=== PATIENT | female | born 1985 | race Caucasian/White ===

== ENCOUNTER 2017-02-06 12:46 | Emergency (ER) | payer MEDICAID ==
[2017-02-06 13:39] VITALS: BP 109/70
--- NOTE | 2017-02-06 13:48 | Emergency Department Report ---
Chief Complaint: Sore Throat Stated Complaint: THROAT AND BODY PAIN Time Seen by Provider: 02/06/17 13:20 - HPI History of Present Illness: sore throat fever aches children so wants to make sure not ill vss nad no sign pmh - ROS Review of Systems: as noted - Exam Vital Signs: Vital Signs 02/06/17 13:36 Temperature 98.2 F Pulse Rate 54 L Respiratory 18 Rate Blood Pressure 109/70 O2 Sat by Pulse 100 Oximetry MSE screening note: Focused history and physical exam performed. Due to findings the following was ordered: ED Disposition for MSE Condition: Stable
--- NOTE | 2017-02-06 15:33 | Emergency Department Report ---
HPI - General Chief Complaint: Sore Throat Time Seen by Provider: 02/06/17 15:17 - HPI HPI: Patient here reported body ache and sore throats this started 3 days ago. She reports that she is a candidate in his throat is sore at 6 out of 10. Denies any fever or chills. Denies any nausea or vomiting. Denies any abdominal pain. Denies any drooling. She is here to be checked out for strep throat. As any coughing or runny nose. Denies neck pain or stiffness. ED Past Medical Hx - Past Medical History Previous Medical History?: Yes - Surgical History Past Surgical History?: Yes Additional Surgical History: x 3 - Family History Family history: no significant - Social History Smoking Status: Current Every Day Smoker Substance Use Type: Alcohol, Non Opiate Pain - Medications Home Medications: Home Medications Medication Instructions Recorded Confirmed Last Taken Type Ibuprofen [Motrin] 600 mg PO Q8H PRN #15 tablet 02/06/17 Unknown Rx Penicillin Vk [Veetids TAB] 500 mg PO Q8H #60 tablet 02/06/17 Unknown Rx ED Review of Systems ROS: Stated complaint: THROAT AND BODY PAIN Other details as noted in HPI Comment: All other systems reviewed and negative Constitutional: denies: chills, fever Eyes: denies: eye pain ENT: throat pain. denies: ear pain, dental pain, hearing loss, congestion Respiratory: no symptoms reported Cardiovascular: denies: chest pain, palpitations, edema, syncope Gastrointestinal: denies: abdominal pain, nausea, vomiting Musculoskeletal: myalgia. denies: back pain, joint swelling, arthralgia Skin: denies: rash Neurological: denies: headache, numbness, paresthesias, confusion, abnormal gait , vertigo Physical Exam - Physical Exam Vital Signs: Vital Signs 02/06/17 13:36 Temperature 98.2 F Pulse Rate 54 L Respiratory 18 Rate Blood Pressure 109/70 O2 Sat by Pulse 100 Oximetry General: This is a 31-year-old female well-nourished well-developed in no acute distress. Physical Exam: Head: [Normocephalic atraumatic Mouth: Moist, positive pharyngeal erythema without exudate. Uvula is midline and oral airway is patent. No gingival enlargement or dental tenderness. No facial swelling. No peritonsillar abscesses. Neck: Supple, no C-spine tenderness, no tracheal deviation. Nontender to palpate. no adenopathy Ears: Bilateral TMs pearly mcdowell.bilateral EAC without any redness swelling or drainage Eyes: Bilateral pupils equal and reactive to light, bilateral EOM intact. Bilateral sclera and conjunctiva without injection. Normal accommodation Nose: Mucosa moist, normal nasal turbinates .maxillary and frontal sinus non- tender to palpate. Lungs: clear to auscultate bilaterally no rhonchi wheezes or rales. Normal work of breathing extremity; No CCE. +2 pulses. No neurovascular compromise Cardiovascular: S1-S2, regular rate rhythm. No murmurs. Skin: clean Dry and intact no rash no lesions Psych: Normal mood and behavior ED Course Vital Signs 02/06/17 13:36 Temperature 98.2 F Pulse Rate 54 L Respiratory 18 Rate Blood Pressure 109/70 O2 Sat by Pulse 100 Oximetry - Reevaluation(s) Reevaluation #1: 02/06/17 16:36 She received Toradol 60 mg IM and emergency room for pain ED Medical Decision Making - Lab Data Strep test positive - Medical Decision Making Course:Pt with diagnosis of strep pharyngitis and myalgia. I Discussed with patient her results of the strep test, treatment plan. She was given Toradol 60 mg IM and emergency room which relieved her pain. PT discharged home with prescription for Motrin and penicillin VK. Critical care attestation.: If time is entered above; I have spent that time in minutes in the direct care of this critically ill patient, excluding procedure time. ED Disposition Clinical Impression: Strep pharyngitis, Myalgia Disposition: DISCHARGED TO HOME OR SELFCARE Is pt being admited?: No Does the pt Need Aspirin: No Condition: Stable Instructions: Strep Throat (ED), Musculoskeletal Pain (ED) Additional Instructions: Gargle with warm saltwater Take antibiotic as prescribed Follow up with Primary care physician and if you do not have one week and follow-up with outside Medical Center Prescriptions: Ibuprofen [Motrin] 600 mg PO Q8H PRN #15 tablet PRN Reason: Pain Penicillin Vk [Veetids TAB] 500 mg PO Q8H #60 tablet Referrals: PRIMARY CARE, [Primary Care Provider] - 2-3 Days [facility] [Outside] - 2-3 Days Forms: Work/School Release Form(ED), Accompanied Note
[2017-02-06] MEDS: TORADOL IM ONE (16:16)
== END 2017-02-06 16:46 | disposition home or self-care (01) ==
LOC: ED 12:46
DX: J02.0 Streptococcal pharyngitis (principal); M79.1 Myalgia; F17.200 Nicotine dependence, unspecified, uncomplicated
CPT/HCPCS: 87430; 96372; 99282; J1885

== ENCOUNTER 2017-05-14 12:21 | Emergency (ER) | payer MEDICAID ==
[2017-05-14 12:31] VITALS: BP 110/75
== END 2017-05-14 13:43 | disposition left against medical advice (07) ==
LOC: ED 12:21
DX: R10.9 Unspecified abdominal pain (principal); Z53.21 Procedure and treatment not carried out due to patient leaving prior to being seen by health care provider

== ENCOUNTER 2017-09-27 08:26 | Emergency (ER) | payer MEDICAID ==
[2017-09-27 08:34] VITALS: BP 115/77
--- NOTE | 2017-09-27 10:09 | Emergency Department Report ---
Chief Complaint: Medical Clearance Stated Complaint: RASH Time Seen by Provider: 09/27/17 09:00 - HPI History of Present Illness: Patient is a 32-year-old female who presents to ED stating she was seen by her primary care physician yesterday for shingles and was given some Acyclovir 800 mg to take 5 times a day as well as ibuprofen 800 mg q8h. Patient states that ibuprofen is not working for her pain. Patient states she started her medication this morning. Patient nausea mentions that she has a history of anxiety and depression and has been off her meds for a couple of months due to the fact that she recently reads moved here from [place] and has not been able to find a psychiatrist. She denies any suicidal ideation or homicidal ideation. Patient denies fevers/chills/nausea/vomiting/abdominal pain/chest pain/ shortness of breath or chest pain - ROS Review of Systems: See HPI - Exam Vital Signs: Vital Signs 09/27/17 08:29 Temperature 98.5 F Pulse Rate 78 Respiratory 16 Rate Blood Pressure 115/77 O2 Sat by Pulse 99 Oximetry Physical Exam: GENERAL: Alert and oriented x3, no apparent distress, Normal Gait, atraumatic. HEAD: Head is normocephalic and a-traumatic. EYES: Extra ocular muscles are intact. Pupils are equal, round, and reactive to light and accommodation. LUNGS: Symetrical with respiration, No wheezing, no rales or crackles, CTAB. HEART: S1, S2 present, regular rate and rhythm without murmur, no rubs, no gallops. Non tender to palpation EXTREMITIES/MUSCULOSKELETAL: No cyanosis, clubbing, rash, lesions or edema. Full ROM bilaterally. UE/LE Pulses 2+ bilaterally. NEUROLOGIC: The patient is cooperative with no focal neurologic deficits. Cranial nerves II through XII are grossly intact. Normal speech. Normal sensation in bilateral upper and lower extremities, No loss of sensation, PSYCHIATRIC: Mood is congruent with affect, denies suicidal or homicidal ideations. SKIN: Warm and dry, No lesions, No ulceration or induration present. MSE screening note: Focused history and physical exam performed. Due to findings the following was ordered: ED Medical Decision Making - Medical Decision Making 32-year-old female presenting with shingles ED course: Patient received 1 tablet on ED I discussed the patient to take the medication unless prescribed by her primary care doctor. I discussed with the patient is some tenderness resolve after taking medications. I discussed the patient states time for the symptoms resolved. I discussed admission to voice radiating the rash. I discussed admission or follow-up with her primary care physician. As I discussed admission out to Ultram to her prescriptions to help with the pain into continuing to take the Motrin and acyclovir as instructed by her primary care physician. Vital signs are normal patient is in no acute distress ED Disposition for MSE Clinical Impression: Shingles outbreak Qualifiers: Herpes zoster complications: without complications Qualified Code(s): B02.9 - Zoster without complications Disposition: TO HOME OR SELFCARE Is pt being admited?: No Does the pt Need Aspirin: No Condition: Stable Instructions: Herpes Zoster (ED) Additional Instructions: Make sure to follow up with the primary care physician as discussed. Take all your medications as you've been prescribed via primary care doctor . If you have any worsening symptoms or develop new symptoms please return to ED immediately. Prescriptions: traMADol [Ultram] 50 mg PO Q6HR PRN #20 tablet PRN Reason: Pain Referrals: JERRY SHRESTHA MD [Primary Care Provider] - 3-5 Days Forms: Accompanied Note, Work/School Release Form(ED) Time of Disposition: 10:41
[2017-09-27] MEDS ORDERED: NORCO 5/325 PO ONE (10:19)
== END 2017-09-27 11:01 | disposition home or self-care (01) ==
LOC: ED 08:26
DX: B02.9 Zoster without complications (principal)
CPT/HCPCS: 99282

== ENCOUNTER 2018-02-15 08:11 | Emergency (ER) | payer OTHER ==
[2018-02-15 08:39] LABS: HCG Qualitative,Urine Negative (Negative)
[2018-02-15 08:47] LABS: Bilirubin,Urine NEG (Negative); Blood,Urine LG (Negative); Color,Urine Yellow (Yellow); Hyaline Casts,Urine 1 /LPF; Mucus,Urine FEW /HPF; Protein,Urine <15 mg/dL mg/dL (Negative); Urobilinogen,Urine < 2.0 mg/dL (<2.0)
[2018-02-15] MEDS ORDERED: TORADOL IV ONE (09:42)
[2018-02-15] MEDS ORDERED: DILAUDID IV ONE (09:42)
[2018-02-15] MEDS ORDERED: ZOFRAN IV ONE (09:42)
--- NOTE | 2018-02-15 10:21 | Emergency Department Report ---
ED General Adult HPI - General Chief complaint: Abdominal Pain Stated complaint: LEFT SIDE BACK PAIN Time Seen by Provider: 02/15/18 09:39 Source: patient Mode of arrival: Ambulatory Limitations: No Limitations - History of Present Illness Initial comments: Patient complains of left flank pain which she states is "going down". She thinks that she is passing a kidney stone. She states that the pain is improving since when it began last night. She states the pain is reminiscent of prior kidney stones. She is status post placement and removal of several ureteral stents. She states her last bout of renal colic was 3 years ago in [place]. She does not have a local urologist. She denies fever or chills and dysuria. She is not nauseated or vomiting. -: hour(s) Location: left (flank) Radiation: non-radiation (left lower quadrant) Severity scale (0 -10): 9 Quality: aching Consistency: intermittent Improves with: none Worsens with: none Associated Symptoms: denies other symptoms Treatments Prior to Arrival: none - Related Data Previous Rx's Medication Instructions Recorded Last Taken Type Ibuprofen [Motrin] 600 mg PO Q8H PRN #15 tablet 02/06/17 Unknown Rx Penicillin Vk [Veetids TAB] 500 mg PO Q8H #60 tablet 02/06/17 Unknown Rx traMADol [Ultram] 50 mg PO Q6HR PRN #20 tablet 09/27/17 Unknown Rx Allergies Allergy/AdvReac Type Severity Reaction Status Date / Time No Known Allergies Allergy Verified 02/15/18 08:13 ED Review of Systems ROS: Stated complaint: LEFT SIDE BACK PAIN Other details as noted in HPI Constitutional: denies: chills, fever Eyes: denies: eye pain, eye discharge, vision change ENT: denies: ear pain, throat pain Respiratory: denies: cough, shortness of breath, wheezing Cardiovascular: denies: chest pain, palpitations Endocrine: no symptoms reported Gastrointestinal: denies: abdominal pain, nausea, diarrhea Genitourinary: denies: urgency, dysuria, discharge Musculoskeletal: back pain. denies: joint swelling, arthralgia Skin: denies: rash, lesions Neurological: denies: headache, weakness, paresthesias Psychiatric: denies: anxiety, depression Hematological/Lymphatic: denies: easy bleeding, easy bruising ED Past Medical Hx - Past Medical History Hx Kidney Stones: Yes Additional medical history: UTI, - Surgical History Additional Surgical History: x 3, Lithotripsies - Social History Smoking Status: Current Every Day Smoker Substance Use Type: Marijuana - Medications Home Medications: Home Medications Medication Instructions Recorded Confirmed Last Taken Type Ibuprofen [Motrin] 600 mg PO Q8H PRN #15 tablet 02/06/17 Unknown Rx Penicillin Vk [Veetids TAB] 500 mg PO Q8H #60 tablet 02/06/17 Unknown Rx traMADol [Ultram] 50 mg PO Q6HR PRN #20 tablet 09/27/17 Unknown Rx ED Physical Exam - General Limitations: No Limitations General appearance: alert, in no apparent distress - Head Head exam: Present: atraumatic, normocephalic - Eye Eye exam: Present: normal appearance, PERRL, EOMI. Absent: scleral icterus - ENT ENT exam: Present: mucous membranes moist - Neck Neck exam: Present: normal inspection - Respiratory Respiratory exam: Present: normal lung sounds bilaterally. Absent: respiratory distress - Cardiovascular Cardiovascular Exam: Present: regular rate, normal rhythm. Absent: systolic murmur, diastolic murmur, rubs, gallop - GI/Abdominal GI/Abdominal exam: Present: soft, normal bowel sounds. Absent: distended, tenderness, guarding, rebound, rigid - Extremities Exam Extremities exam: Present: normal inspection - Back Exam Back exam: Present: normal inspection. Absent: CVA tenderness (R), CVA tenderness (L) - Neurological Exam Neurological exam: Present: alert, oriented X3, CN II-XII intact. Absent: motor sensory deficit - Psychiatric Psychiatric exam: Present: normal affect, normal mood - Skin Skin exam: Present: warm, dry, intact, normal color. Absent: rash ED Course Vital Signs 02/15/18 02/15/18 02/15/18 08:13 08:49 08:51 Temperature 97.8 F 98.6 F Pulse Rate 64 65 Respiratory 18 16 16 Rate Blood Pressure 120/69 Blood Pressure 120/78 [Right] O2 Sat by Pulse 100 100 100 Oximetry 02/15/18 10:10 Temperature Pulse Rate Respiratory 16 Rate Blood Pressure Blood Pressure [Right] O2 Sat by Pulse Oximetry - Reevaluation(s) Reevaluation #1: Pain resolved. 02/15/18 11:43 ED Medical Decision Making - Radiology Data Radiology results: report reviewed (minimal hydronephrosis on the right with nephrolithiasis probably passed a small stone) Critical care attestation.: If time is entered above; I have spent that time in minutes in the direct care of this critically ill patient, excluding procedure time. ED Disposition Clinical Impression: Renal colic, Renal lithiasis Disposition: TO HOME OR SELFCARE Is pt being admited?: No Does the pt Need Aspirin: No Condition: Stable Instructions: Abdominal Pain (ED), Kidney Stones (ED) Additional Instructions: Follow-up with the urologist. Return any acute change or problem. Referrals: PRIMARY CAREMD [Primary Care Provider] - 3-5 Days [facility] [Provider Group] - 3-5 Days Time of Disposition: 11:44
--- NOTE | 2018-02-15 11:14 | Cat Scan Report ---
CT ABDOMEN PELVIS WITHOUT CONTRAST: HISTORY: Left renal colic. COMPARISON: none. TECHNIQUE: Helical CT in 1.25mm intervals without IV contrast. Sagittal and coronal reconstructions. FINDINGS: Lung bases: Normal. Liver: Normal. Biliary system: Normal. Pancreas: Normal. Spleen: Normal. Kidneys/ureters/bladder: Both kidneys are normal in position. There are 3 calyceal stones in the left kidney measuring up to 3 mm. Solitary punctate calcification is identified in the inferior right kidney. Right renal cyst measures 2.5 cm. There is mild left hydronephrosis. The left ureter is mildly dilated although no discrete ureteral stone is identified. The right collecting system and bladder are unremarkable. Adrenal glands: Normal. Aorta: Normal. Intestines: Unremarkable given no oral contrast was administered. Appendix: Normal. Pelvic viscera: Normal. Ascites: None. Adenopathy: None. Musculoskeletal: Normal. IMPRESSION: Bilateral nephrolithiasis as described. Mild left hydronephrosis is identified although no left ureteral stone is identified on noncontrast CT. This may represent a recently passed left ureteral stone. Please correlate with the patient's clinical presentation.
[2018-02-15 11:55] VITALS: BP 120/73
== END 2018-02-15 11:55 | disposition home or self-care (01) ==
LOC: ED 08:11
DX: N20.0 Calculus of kidney (principal); F17.200 Nicotine dependence, unspecified, uncomplicated
CPT/HCPCS: 74176; 81001; 81025; 96374; 96375; 99284; J1170; J1885; J2405

== ENCOUNTER 2018-03-30 00:44 | Emergency (ER) | payer OTHER | END 2018-03-30 03:00 | disposition left against medical advice (07) | LOC: ED 00:44 | DX: R10.9 Unspecified abdominal pain (principal); Z53.21 Procedure and treatment not carried out due to patient leaving prior to being seen by health care provider ==

== ENCOUNTER 2018-04-14 12:46 | Emergency (ER) | payer OTHER ==
--- NOTE | 2018-04-14 13:18 | Emergency Department Report ---
ED Psych HPI - General Chief Complaint: Psych Stated Complaint: SEVERE DEPRESSION/BACK PAIN Time Seen by Provider: 04/14/18 13:01 Source: patient Mode of arrival: Ambulatory - History of Present Illness Initial Comments: This is a 32-year-old female presents with anxiety and depression for 2 -3 weeks. Patient reports missing 2 appointments with primary care provider for follow-up on depression last week. She called the after hours hotline and they told her to follow-up in the emergency room. Patient reports having loss of appetite and continues to cry for no reason. She denies suicidal ideation or homicidal ideation. Patient states she believes what triggered her depression is when her children's left to visit her father for the summer in [place]. States she does have a history of depression and has not taken many in 4 years since a liter [place]. She is currently not on any medication at this time. She is also complaining of mid back pain. She does have a history of kidney stones and chronic low back pain. She is concerned possibly not eating or drinking and triggered it. Denies frequency, urgency, dysuria, fever, chest pain,and nausea or vomiting. MD Complaint: feels depressed -: week(s) (2-3 weeks) Associated Psychiatric Symptoms: depression History of same: Yes Quality: constant Improves With: none Worsens With: none Context: not taking psychiatric, significant life stressor Associated Symptoms: denies other symptoms Treatments Prior to Arrival: none - Related Data Previous Rx's Medication Instructions Recorded Last Taken Type Ibuprofen [Motrin] 600 mg PO Q8H PRN #15 tablet 02/06/17 Unknown Rx Penicillin Vk [Veetids TAB] 500 mg PO Q8H #60 tablet 02/06/17 Unknown Rx traMADol [Ultram] 50 mg PO Q6HR PRN #20 tablet 09/27/17 Unknown Rx Naproxen [Naprosyn] 500 mg PO BID PRN #15 tablet 04/14/18 Unknown Rx Allergies Allergy/AdvReac Type Severity Reaction Status Date / Time No Known Allergies Allergy Verified 02/15/18 08:13 ED Review of Systems ROS: Stated complaint: SEVERE DEPRESSION/BACK PAIN Other details as noted in HPI Constitutional: denies: chills, fever Respiratory: denies: cough, shortness of breath, wheezing Cardiovascular: denies: chest pain, palpitations Gastrointestinal: denies: abdominal pain, nausea, vomiting, diarrhea Genitourinary: denies: urgency, dysuria, frequency, discharge Musculoskeletal: back pain. denies: joint swelling, arthralgia, myalgia Neurological: denies: headache, weakness, numbness, paresthesias Psychiatric: anxiety, depression. denies: auditory hallucinations, visual hallucinations, homicidal thoughts, suicidal thoughts ED Past Medical Hx - Past Medical History Hx Kidney Stones: Yes Hx Psychiatric Treatment: Yes (depression,anxiety) Additional medical history: UTI,chronic back pain - Surgical History Additional Surgical History: x 3, Lithotripsies,tubiligation - Social History Smoking Status: Current Some Day Smoker Substance Use Type: None - Medications Home Medications: Home Medications Medication Instructions Recorded Confirmed Last Taken Type Ibuprofen [Motrin] 600 mg PO Q8H PRN #15 tablet 02/06/17 Unknown Rx Penicillin Vk [Veetids TAB] 500 mg PO Q8H #60 tablet 02/06/17 Unknown Rx traMADol [Ultram] 50 mg PO Q6HR PRN #20 tablet 09/27/17 Unknown Rx Naproxen [Naprosyn] 500 mg PO BID PRN #15 tablet 04/14/18 Unknown Rx ED Physical Exam - General Limitations: No Limitations General appearance: alert, in no apparent distress - Respiratory Respiratory exam: Present: normal lung sounds bilaterally. Absent: respiratory distress - Cardiovascular Cardiovascular Exam: Present: regular rate, normal rhythm. Absent: systolic murmur, diastolic murmur, rubs, gallop - GI/Abdominal GI/Abdominal exam: Present: soft, normal bowel sounds - Back Exam Back exam: Present: full ROM, CVA tenderness (L), paraspinal tenderness. Absent : CVA tenderness (R), muscle spasm, rash noted - Neurological Exam Neurological exam: Present: alert, oriented X3 - Psychiatric Psychiatric exam: Present: depressed, flat affect - Skin Skin exam: Present: warm, dry, intact, normal color. Absent: rash ED Course Vital Signs 04/14/18 04/14/18 12:51 15:07 Temperature 98.6 F 98.9 F Pulse Rate 85 66 Respiratory 18 18 Rate Blood Pressure 119/83 Blood Pressure 103/50 [Left] O2 Sat by Pulse 98 100 Oximetry ED Medical Decision Making - Lab Data Result diagrams: 04/14/18 13:17 04/14/18 13:17 - Medical Decision Making This is a 32-year-old female presents with anxiety and depression for 2 -3 weeks. Patient was examined by me. Vitals are normal. Obtained CBC, BMP, magnesium, toxicology, UA, hCG qualitative, and thyroid panel. Toxicology positive for benzodiazepines and marijuana, subclinical hyperthyroidism, all of the labs are remarkable. Patient admits to taking alprazolam old prescription. Given ibuprofen 800 mg by mouth once while in the ER for back pain. Consulted with Dr. Olvera and consults with mental health evaluation. Patient will be referred to PHP for outpatient mental health management per her [facility]. Start naproxen for chronic back pain. Plan discussed with patient to discharge home and treat outpatient. She agrees with ER plan. Patient discharged home in stable condition. Follow up with PHP at [facility] in the morning at 0830. Follow-up with primary care provider in 2-3 days. Critical care attestation.: If time is entered above; I have spent that time in minutes in the direct care of this critically ill patient, excluding procedure time. ED Disposition Clinical Impression: Depression Qualifiers: Depression Type: dysthymia Qualified Code(s): F34.1 - Dysthymic disorder Chronic low back pain Qualifiers: Back pain laterality: midline Sciatica presence: without sciatica Qualified Code(s): M54.5 - Low back pain; G89.29 - Other chronic pain Disposition: DC- TO HOME OR SELFCARE Is pt being admited?: No Does the pt Need Aspirin: No Condition: Stable Instructions: Depression (ED), Chronic Back Pain (ED) Additional Instructions: Follow up with PHP at [facility] at 08:30 AM in the morning for management of depression. Her primary care provider in 2-3 days. Take naproxen twice a day as needed for pain. Prescriptions: Naproxen [Naprosyn] 500 mg PO BID PRN #15 tablet PRN Reason: Pain, Moderate (4-6) Referrals: [facility] [Outside] - 3-5 Days [facility] [Outside] - 3-5 Days [facility] [Other] - 3-5 Days Time of Disposition: 15:57 Print Language: GERMAN
[2018-04-14 13:34] LABS: Basophils % (Auto) 0.4 % (0.0-1.8); Eosinophils # (Auto) 0.1 K/mm3 (0.0-0.4); Eosinophils % (Auto) 0.6 % (0.0-4.3); Hematocrit 41.5 % (30.3-42.9); Hemoglobin 13.5 gm/dl (10.1-14.3); Lymphocytes # (Auto) 2.2 K/mm3 (1.2-5.4); Lymphocytes % (Auto) 23.9 % (13.4-35.0); Mean Corpuscular HGB Conc 33 % (30-34); Mean Corpuscular Hemoglobin 29 pg (28-32); Mean Corpuscular Volume 88 fl (79-97); Monocytes # (Auto) 0.6 K/mm3 (0.0-0.8); Monocytes % (Auto) 6.6 % (0.0-7.3); Platelet Count 407 K/mm3 (140-440); Red Blood Count 4.71 M/mm3 (3.65-5.03); Red Cell Distribution Width 13.9 % (13.2-15.2)
[2018-04-14 13:34] LABS: Bacteria,Urine 1+ /HPF (Negative); Bilirubin,Urine NEG (Negative); Blood,Urine NEG (Negative); Color,Urine Yellow (Yellow); Mucus,Urine 3+ /HPF; Protein,Urine <15 mg/dL mg/dL (Negative); Urobilinogen,Urine < 2.0 mg/dL (<2.0)
[2018-04-14 13:40] LABS: Amphetamine Screen,Urine PRESUMPTIVE NEGATIVE; Cocaine Screen,Urine PRESUMPTIVE NEGATIVE; Methadone Screen,Urine PRESUMPTIVE NEGATIVE; Opiate Screen,Urine PRESUMPTIVE NEGATIVE
[2018-04-14 13:56] LABS: BUN/Creatinine Ratio 18; Blood Urea Nitrogen 9 mg/dL (7-17)
[2018-04-14 13:57] LABS: Hemolysis Index 5
[2018-04-14 13:58] LABS: Benzodiazepines Screen,Urine PRESUMPTIVE POSITIVE; Cannabinoid Screen,Urine PRESUMPTIVE POSITIVE
[2018-04-14 14:05] LABS: Free T4 (Free Thyroxine) 1.35 ng/dL (0.76-1.46)
[2018-04-14 15:07] VITALS: BP 103/50
[2018-04-14] MEDS ORDERED: MOTRIN PO ONE (16:03)
== END 2018-04-14 16:21 | disposition home or self-care (01) ==
LOC: ED 12:46
DX: F32.9 Major depressive disorder, single episode, unspecified (principal); F34.1 Dysthymic disorder; M54.5 Low back pain; G89.29 Other chronic pain; F17.200 Nicotine dependence, unspecified, uncomplicated; Z87.442 Personal history of urinary calculi; Z98.51 Tubal ligation status
CPT/HCPCS: 36415; 80048; 80307; 81001; 83735; 84439; 84443; 84703; 85025; 99283

== ENCOUNTER 2019-06-30 14:59 | Emergency (ER) | payer SELFPAY ==
--- NOTE | 2019-06-30 15:43 | Event Note ---
ED Screening Note ED Screening Note: hx of nephrolithiasis pt has left flank pain that began this morning states she believes she passed one small kidney stone + nausea no vomiting +dysuria LNMP: 06/26/19 This initial assessment/diagnostic orders/clinical plan/treatment(s) is/are subject to change based on patients health status, clinical progression and re- assessment by fellow clinical providers in the ED. Further treatment and workup at subsequent clinical providers discretion. Patient/guardian urged not to elope from the ED as their condition may be serious if not clinically assessed and managed. Initial orders include: labs, UA, ct abd pelvis without contrast
[2019-06-30 16:12] LABS: Bilirubin,Urine NEG (Negative); Blood,Urine SM (Negative); Color,Urine Yellow (Yellow); Mucus,Urine 1+ /HPF; Protein,Urine <15 mg/dL mg/dL (Negative); Urobilinogen,Urine < 2.0 mg/dL (<2.0); WBC,Urine < 1.0 /HPF (0.0-6.0)
[2019-06-30 16:18] LABS: Basophils # (Auto) 0.1 K/mm3 (0.0-0.1); Basophils % (Auto) 0.8 % (0.0-1.8); Eosinophils # (Auto) 0.1 K/mm3 (0.0-0.4); Eosinophils % (Auto) 0.4 % (0.0-4.3); Hematocrit 43.8 % (30.3-42.9); Hemoglobin 14.2 gm/dl (10.1-14.3); Lymphocytes # (Auto) 2.4 K/mm3 (1.2-5.4); Lymphocytes % (Auto) 20.3 % (13.4-35.0); Mean Corpuscular HGB Conc 33 % (30-34); Mean Corpuscular Volume 90 fl (79-97); Monocytes # (Auto) 0.6 K/mm3 (0.0-0.8); Monocytes % (Auto) 5.3 % (0.0-7.3); Platelet Count 451 K/mm3 (140-440); Red Blood Count 4.86 M/mm3 (3.65-5.03)
[2019-06-30 16:37] LABS: Alanine Aminotransferase 12 units/L (7-56); Albumin 4.1 g/dL (3.9-5); BUN/Creatinine Ratio 22; Blood Urea Nitrogen 11 mg/dL (7-17); Calcium 9.1 mg/dL (8.4-10.2); Hemolysis Index 25
--- NOTE | 2019-06-30 16:59 | Cat Scan Report ---
CT ABDOMEN AND PELVIS WITHOUT CONTRAST INDICATION: left flank pain, hx of nephrolithiasis. COMPARISON: CT abdomen and pelvis without contrast from 02/15/2018. TECHNIQUE: Axial, coronal and sagittal CT imaging of the abdomen and pelvis was performed without co ntrast. Lack of intravenous contrast limits evaluation of the vascular and solid organs. All CT sca ns at this location are performed using CT dose reduction for ALARA by means of automated exposure co ntrol. FINDINGS: LOWER CHEST: No significant abnormality. LIVER: Similarly enlarged. No additional significant abnormality. BILIARY: No significant abnormality. PANCREAS: No significant abnormality. SPLEEN: No significant abnormality. ADRENALS: No significant abnormality. KIDNEYS AND URETERS: Bilateral renal stones are similar to the prior exam. The largest is located heidy ng the left lower renal pole measuring 5 mm. No associated obstruction is identified. No ureteral sto hamida are seen. A right lower renal pole cyst is unchanged. GI TRACT: No significant abnormality of the stomach, small bowel or colon. Unremarkable appendix. PERITONEUM: No free fluid. No free air. No fluid collection. LYMPH NODES: No significant adenopathy. VASCULATURE: No significant abnormality. URINARY BLADDER: No significant abnormality. REPRODUCTIVE ORGANS: No significant abnormality. ADDITIONAL FINDINGS: None. SKELETAL SYSTEM: No significant abnormality. IMPRESSION: 1. Nonobstructive bilateral renal stones as above. 2. Stable right renal cyst. Signer Name: Stone Barber MD Signed: 06/30/2019 4:55 PM Workstation Name: [id number]
[2019-06-30] MEDS ORDERED: NACL 0.9% 1000 ML 1,000 ML IV ONE (17:40)
[2019-06-30] MEDS ORDERED: ZOFRAN IV ONE (17:40)
[2019-06-30] MEDS ORDERED: TORADOL IV ONE (17:40)
[2019-06-30] MEDS ORDERED: MORPHINE ONE (19:01)
[2019-06-30] MEDS ORDERED: MORPHINE IV ONE (19:03)
--- NOTE | 2019-06-30 19:28 | Emergency Department Report ---
ED Abdominal Pain HPI - General Chief Complaint: Abdominal Pain Stated Complaint: KIDNEY STONES PAIN/PANIC ATTACK Time Seen by Provider: 06/30/19 15:41 Source: patient Mode of arrival: Ambulatory Limitations: No Limitations - History of Present Illness MD Complaint: flank pain -: week(s) Location: L flank, R flank Radiation: none Migration to: no migration Severity scale (0 -10): 9 Quality: cramping, stabbing, aching Consistency: constant Improves With: nothing Associated Symptoms: nausea, vomiting. denies: diarrhea, fever, constipation, hematuria - Related Data Previous Rx's Medication Instructions Recorded Last Taken Type Ibuprofen [Motrin] 600 mg PO Q8H PRN #15 tablet 02/06/17 Unknown Rx Penicillin Vk [Veetids TAB] 500 mg PO Q8H #60 tablet 02/06/17 Unknown Rx Naproxen [Naprosyn] 500 mg PO BID PRN #15 tablet 04/14/18 Unknown Rx Ketorolac [Toradol] 10 mg PO Q6H PRN #30 tablet 06/30/19 Unknown Rx Ondansetron (Nf) [Zofran TAB] 8 mg PO Q8HR #20 tablet 06/30/19 Unknown Rx Tamsulosin [Flomax] 0.4 mg PO QDAY #5 cap 06/30/19 Unknown Rx traMADol [Ultram 50 MG tab] 50 mg PO Q6HR PRN #20 tablet 06/30/19 Unknown Rx Allergies Allergy/AdvReac Type Severity Reaction Status Date / Time No Known Allergies Allergy Verified 02/15/18 08:13 ED Review of Systems ROS: Stated complaint: KIDNEY STONES PAIN/PANIC ATTACK Other details as noted in HPI Comment: All other systems reviewed and negative ED Past Medical Hx - Past Medical History Previous Medical History?: Yes Hx Kidney Stones: Yes Hx Psychiatric Treatment: Yes (depression,anxiety) Additional medical history: UTI,chronic back pain - Surgical History Past Surgical History?: Yes Additional Surgical History: x 3, Lithotripsies,tubiligation - Social History Smoking Status: Current Every Day Smoker Substance Use Type: None - Medications Home Medications: Home Medications Medication Instructions Recorded Confirmed Last Taken Type Ibuprofen [Motrin] 600 mg PO Q8H PRN #15 tablet 02/06/17 Unknown Rx Penicillin Vk [Veetids TAB] 500 mg PO Q8H #60 tablet 02/06/17 Unknown Rx Naproxen [Naprosyn] 500 mg PO BID PRN #15 tablet 04/14/18 Unknown Rx Ketorolac [Toradol] 10 mg PO Q6H PRN #30 tablet 06/30/19 Unknown Rx Ondansetron (Nf) [Zofran TAB] 8 mg PO Q8HR #20 tablet 06/30/19 Unknown Rx Tamsulosin [Flomax] 0.4 mg PO QDAY #5 cap 06/30/19 Unknown Rx traMADol [Ultram 50 MG tab] 50 mg PO Q6HR PRN #20 tablet 06/30/19 Unknown Rx ED Physical Exam - General Limitations: No Limitations General appearance: alert, in no apparent distress - Head Head exam: Present: atraumatic, normocephalic - Eye Eye exam: Present: normal appearance - ENT ENT exam: Present: mucous membranes moist - Neck Neck exam: Present: normal inspection - Respiratory Respiratory exam: Present: normal lung sounds bilaterally. Absent: respiratory distress - Cardiovascular Cardiovascular Exam: Present: regular rate, normal rhythm. Absent: systolic murmur, diastolic murmur, rubs, gallop - GI/Abdominal GI/Abdominal exam: Present: soft, normal bowel sounds - Extremities Exam Extremities exam: Present: normal inspection - Back Exam Back exam: Present: normal inspection - Neurological Exam Neurological exam: Present: alert, oriented X3 - Psychiatric Psychiatric exam: Present: normal affect, normal mood - Skin Skin exam: Present: warm, dry, intact, normal color. Absent: rash ED Course Vital Signs 06/30/19 06/30/19 06/30/19 15:41 17:45 18:00 Temperature 98.6 F Pulse Rate 77 Respiratory 16 17 19 Rate Blood Pressure 103/71 O2 Sat by Pulse 98 Oximetry ED Medical Decision Making - Lab Data Result diagrams: 06/30/19 16:01 06/30/19 16:01 Laboratory Last Values WBC 11.7 K/mm3 (4.5-11.0) H 06/30/19 16:01 RBC 4.86 M/mm3 (3.65-5.03) 06/30/19 16:01 Hgb 14.2 gm/dl (10.1-14.3) 06/30/19 16:01 Hct 43.8 % (30.3-42.9) H 06/30/19 16:01 MCV 90 fl (79-97) 06/30/19 16:01 MCH 29 pg (28-32) 06/30/19 16:01 MCHC 33 % (30-34) 06/30/19 16:01 RDW 14.0 % (13.2-15.2) 06/30/19 16:01 Plt Count 451 K/mm3 (140-440) H 06/30/19 16:01 Lymph % (Auto) 20.3 % (13.4-35.0) 06/30/19 16:01 [place] % (Auto) 5.3 % (0.0-7.3) 06/30/19 16:01 Eos % (Auto) 0.4 % (0.0-4.3) 06/30/19 16:01 Baso % (Auto) 0.8 % (0.0-1.8) 06/30/19 16:01 Lymph # 2.4 K/mm3 (1.2-5.4) 06/30/19 16:01 [place] # 0.6 K/mm3 (0.0-0.8) 06/30/19 16:01 Eos # 0.1 K/mm3 (0.0-0.4) 06/30/19 16:01 Baso # 0.1 K/mm3 (0.0-0.1) 06/30/19 16:01 Seg Neutrophils % 73.2 % (40.0-70.0) H 06/30/19 16:01 Seg Neutrophils # 8.6 K/mm3 (1.8-7.7) H 06/30/19 16:01 Sodium 139 mmol/L (137-145) 06/30/19 16:01 Potassium 4.3 mmol/L (3.6-5.0) 06/30/19 16:01 Chloride 102.2 mmol/L (98-107) 06/30/19 16:01 Carbon Dioxide 26 mmol/L (22-30) 06/30/19 16:01 15 mmol/L 06/30/19 16:01 BUN 11 mg/dL (7-17) 06/30/19 16:01 0.5 mg/dL (0.7-1.2) L 06/30/19 16:01 Estimated GFR > 60 ml/min 06/30/19 16:01 22 % 06/30/19 16:01 Glucose 95 mg/dL (65-100) 06/30/19 16:01 Calcium 9.1 mg/dL (8.4-10.2) 06/30/19 16:01 < 0.20 mg/dL (0.1-1.2) 06/30/19 16:01 AST 20 units/L (5-40) 06/30/19 16:01 ALT 12 units/L (7-56) 06/30/19 16:01 64 units/L (35-129) 06/30/19 16:01 6.9 g/dL (6.3-8.2) 06/30/19 16:01 4.1 g/dL (3.9-5) 06/30/19 16:01 1.5 % 06/30/19 16:01 21 units/L (13-60) 06/30/19 16:01 HCG, Qual Negative (Negative) 06/30/19 16:01 Yellow (Yellow) 06/30/19 15:55 Slightly-cloudy (Clear) 06/30/19 15:55 7.0 (5.0-7.0) 06/30/19 15:55 Ur Specific [place] 1.015 (1.003-1.030) 06/30/19 15:55 <15 mg/dl mg/dL (Negative) 06/30/19 15:55 Neg mg/dL (Negative) 06/30/19 15:55 Neg mg/dL (Negative) 06/30/19 15:55 Sm (Negative) 06/30/19 15:55 Neg (Negative) 06/30/19 15:55 Neg (Negative) 06/30/19 15:55 < 2.0 mg/dL (<2.0) 06/30/19 15:55 Ur Leukocyte Esterase Neg (Negative) 06/30/19 15:55 < 1.0 /HPF (0.0-6.0) 06/30/19 15:55 13.0 /HPF (0.0-6.0) 06/30/19 15:55 U Epithel Cells (Auto) 4.0 /HPF (0-13.0) 06/30/19 15:55 1+ /HPF 06/30/19 15:55 - Radiology Data Radiology results: report reviewed, image reviewed CT ABDOMEN AND PELVIS WITHOUT CONTRAST INDICATION: left flank pain, hx of nephrolithiasis. COMPARISON: CT abdomen and pelvis without contrast from 02/15/2018. TECHNIQUE: Axial, coronal and sagittal CT imaging of the abdomen and pelvis was performed without contrast. Lack of intravenous contrast limits evaluation of the vascular and solid organs. All CT scans at this location are performed using CT dose reduction for ALARA by means of automated exposure control. FINDINGS: LOWER CHEST: No significant abnormality. LIVER: Similarly enlarged. No additional significant abnormality. BILIARY: No significant abnormality. PANCREAS: No significant abnormality. SPLEEN: No significant abnormality. ADRENALS: No significant abnormality. KIDNEYS AND URETERS: Bilateral renal stones are similar to the prior exam. The largest is located along the left lower renal pole measuring 5 mm. No associated obstruction is identified. No ureteral stones are seen. A right lower renal pole cyst is unchanged. GI TRACT: No significant abnormality of the stomach, small bowel or colon. Unremarkable appendix. PERITONEUM: No free fluid. No free air. No fluid collection. LYMPH NODES: No significant adenopathy. VASCULATURE: No significant abnormality. URINARY BLADDER: No significant abnormality. REPRODUCTIVE ORGANS: No significant abnormality. ADDITIONAL FINDINGS: None. SKELETAL SYSTEM: No significant abnormality. IMPRESSION: 1. Nonobstructive bilateral renal stones as above. 2. Stable right renal cyst. Signer Name: Stone Barber MD Signed: 06/30/2019 4:55 PM Workstation Name: [id number] Transcribed By: KENNETH Dictated By: Stone Barber MD Electronically Authenticated By: Stone Barber MD Signed Date/Time: 06/30/19 9308 - Medical Decision Making 33-year-old female presents with bilateral Nonobstructing kidney stone causing pain. All labs were within normal limits CT scan shows results he reported above. Patient received IV fluids Toradol and morphine and Zofran. She was comfortable. Discussed findings with the patient. Discussed with patient follow-up urology. 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 Patient is in no acute distress. She is comfortable in the ED bed. Discussed the patient that she was going home on pain control and Zofran for nausea. An other signs of instructions and follow-up Critical care attestation.: If time is entered above; I have spent that time in minutes in the direct care of this critically ill patient, excluding procedure time. ED Disposition Clinical Impression: Kidney stones, Flank pain, acute Disposition: DC-01 TO HOME OR SELFCARE Is pt being admited?: No Does the pt Need Aspirin: No Condition: Stable Instructions: Abdominal Pain (ED), Flank Pain (ED), Kidney Stones (ED) Additional Instructions: Make sure to follow up with the primary care physician as discussed. Take all your medications as you've been prescribed. If you have any worsening symptoms or develop new symptoms please return to ED immediately. Prescriptions: Tamsulosin [Flomax] 0.4 mg PO QDAY #5 cap Ketorolac [Toradol] 10 mg PO Q6H PRN #30 tablet PRN Reason: Pain traMADol [Ultram 50 MG tab] 50 mg PO Q6HR PRN #20 tablet PRN Reason: Pain Ondansetron (Nf) [Zofran TAB] 8 mg PO Q8HR #20 tablet Referrals: PRIMARY CAREMD [Primary Care Provider] - 3-5 Days VIVIAN SHARPE MD [Staff Physician] - 3-5 Days Forms: Accompanied Note, Work/School Release Form(ED) Time of Disposition: 19:35
[2019-06-30 20:04] VITALS: BP 122/72
== END 2019-06-30 20:01 | disposition home or self-care (01) ==
LOC: ED 14:59
DX: N20.0 Calculus of kidney (principal); R11.2 Nausea with vomiting, unspecified; M54.9 Dorsalgia, unspecified; G89.29 Other chronic pain; F32.9 Major depressive disorder, single episode, unspecified; F41.9 Anxiety disorder, unspecified; F17.200 Nicotine dependence, unspecified, uncomplicated; Z79.899 Other long term (current) drug therapy; Z98.51 Tubal ligation status
CPT/HCPCS: 36415; 74176; 80053; 81001; 83690; 84703; 85025; 96361; 96374; 96375; 99284; J1885; J2270; J2405; J7030

== ENCOUNTER 2019-08-25 08:16 | Emergency (ER) | payer SELFPAY ==
--- NOTE | 2019-08-25 08:55 | Emergency Department Report ---
HPI - General Chief Complaint: Sore Throat Time Seen by Provider: 08/25/19 08:33 - HPI HPI: 34-year-old female presents to the emergency department with a one-month history of some right-sided neck pain and subjective swelling. Patient says that she feels some type of a lump or a ball to the right side of the neck that has been there consistently over this month. She also says that it hurts when she tries to swallow. However she denies an actual sore throat. Denies any fever, rash, chest pain. She has a past nuchal history of kidney stones, depression, anxiety. She has a primary care physician but has not seen them regarding his symptoms. ED Past Medical Hx - Past Medical History Previous Medical History?: Yes Hx Kidney Stones: Yes Hx Psychiatric Treatment: Yes (depression,anxiety) Additional medical history: UTI,chronic back pain - Surgical History Past Surgical History?: Yes Additional Surgical History: x 3, Lithotripsies,tubiligation - Social History Smoking Status: Current Every Day Smoker Substance Use Type: Marijuana - Medications Home Medications: Home Medications Medication Instructions Recorded Confirmed Last Taken Type Ibuprofen [Motrin] 600 mg PO Q8H PRN #15 tablet 02/06/17 Unknown Rx Penicillin Vk [Veetids TAB] 500 mg PO Q8H #60 tablet 02/06/17 Unknown Rx Naproxen [Naprosyn] 500 mg PO BID PRN #15 tablet 04/14/18 Unknown Rx Ketorolac [Toradol] 10 mg PO Q6H PRN #30 tablet 06/30/19 Unknown Rx Ondansetron (Nf) [Zofran TAB] 8 mg PO Q8HR #20 tablet 06/30/19 Unknown Rx Tamsulosin [Flomax] 0.4 mg PO QDAY #5 cap 06/30/19 Unknown Rx traMADol [Ultram 50 MG tab] 50 mg PO Q6HR PRN #20 tablet 06/30/19 Unknown Rx ED Review of Systems ROS: Stated complaint: RT SIDE PAIN/THROAT PAIN Other details as noted in HPI Comment: All other systems reviewed and negative Constitutional: denies: chills, fever Eyes: denies: eye pain, vision change ENT: other (right-sided neck pain). denies: ear pain Respiratory: denies: cough, shortness of breath Cardiovascular: denies: chest pain Skin: denies: rash, lesions Neurological: denies: headache, weakness Physical Exam - Physical Exam Vital Signs: Vital Signs 08/25/19 08/25/19 08:18 08:48 Temperature 98.8 F Pulse Rate 86 Respiratory 16 16 Rate Blood Pressure 110/62 O2 Sat by Pulse 97 Oximetry Physical Exam: GENERAL: The patient is well-developed well-nourished. HENT: Normocephalic. Atraumatic. Patient has moist mucous membranes. Oropharynx is clear without tonsillar hypertrophy, erythema or exudates. No drooling or trismus. EYES: Extraocular motions are intact. Pupils equal reactive to light bilaterally. NECK: Supple. Trachea is midline. There is some mild tenderness to palpation to the anterior right portion of the neck about the area of the submandibular and parathyroid region. No appreciable swelling, lymphadenopathy or deformity. CHEST/LUNGS: Clear to auscultation. There is no respiratory distress noted. HEART/CARDIOVASCULAR: Regular. There is no tachycardia. There is no murmur. ABDOMEN: There is no abdominal distention. SKIN: Skin is warm and dry. NEURO: The patient is awake, alert, and oriented. The patient is cooperative. The patient has no focal neurologic deficits. Normal speech. MUSCULOSKELETAL: There is no tenderness or deformity. There is no evidence of acute injury. ED Course Vital Signs 08/25/19 08/25/19 08:18 08:48 Temperature 98.8 F Pulse Rate 86 Respiratory 16 16 Rate Blood Pressure 110/62 O2 Sat by Pulse 97 Oximetry ED Medical Decision Making - Lab Data Result diagrams: 08/25/19 08:54 08/25/19 08:54 - Radiology Data Radiology results: image reviewed interpreted by me: X-ray of the soft tissue of the neck does not show any acute process. - Medical Decision Making Patient percents with some right-sided neck pain with subjective swelling or nodule that has been going on for the past 1-2 months. She has an appointment with a primary care physician coming up but came in as she was concerned. Labs have been unremarkable according CBC, metabolic panel and thyroid. X-ray of the soft tissue of the neck did not show any acute process. This could be some lymphadenopathy that I cannot currently palpate. This could be a thyroid nodule. There is a wide her differential as well, but the patient does not appear to have any emergent medical condition that requires immediate intervention or admission to this hospital. She will be discharged home to follow-up with primary care and will return with any worsening of her symptoms or any acute distress. - Differential Diagnosis lymphadenopathy, thyroid nodule, pharyngitis Critical Care Time: No Critical care attestation.: If time is entered above; I have spent that time in minutes in the direct care of this critically ill patient, excluding procedure time. ED Disposition Clinical Impression: Neck pain on right side Disposition: - TO HOME OR SELFCARE Is pt being admited?: No Condition: Stable Additional Instructions: Please follow-up with your primary care physician regarding your right-sided neck pain and some pain with swallowing. Return to the emergency Department with any worsening of your symptoms or any acute distress. Referrals: PRIMARY CARE, [Primary Care Provider] - 2-3 Days Time of Disposition: 10:05
[2019-08-25 09:13] LABS: Basophils # (Auto) 0.1 K/mm3 (0.0-0.1); Basophils % (Auto) 0.9 % (0.0-1.8); Eosinophils # (Auto) 0.1 K/mm3 (0.0-0.4); Eosinophils % (Auto) 1.3 % (0.0-4.3); Hematocrit 40.2 % (30.3-42.9); Hemoglobin 13.2 gm/dl (10.1-14.3); Lymphocytes # (Auto) 1.7 K/mm3 (1.2-5.4); Lymphocytes % (Auto) 16.9 % (13.4-35.0); Mean Corpuscular HGB Conc 33 % (30-34); Mean Corpuscular Volume 89 fl (79-97); Monocytes # (Auto) 0.8 K/mm3 (0.0-0.8); Monocytes % (Auto) 7.5 % (0.0-7.3); Platelet Count 407 K/mm3 (140-440); Red Cell Distribution Width 13.2 % (13.2-15.2)
[2019-08-25 09:35] LABS: BUN/Creatinine Ratio 25; Blood Urea Nitrogen 10 mg/dL (7-17); Calcium 8.8 mg/dL (8.4-10.2); Hemolysis Index 11
--- NOTE | 2019-08-25 09:48 | XRay Report ---
SOFT TISSUE NECK, 2 VIEWS HISTORY: Neck pain when swallowing. COMPARISON: None. FINDINGS: Paravertebral soft tissues appear normal. No evidence for thickening, soft tissue gas or to nsillar enlargement. The epiglottis and upper airway are unremarkable. Arytenoid/thyroid cartilage ca lcifications are noted. Normal bony structures. IMPRESSION: Normal exam. Signer Name: Michael Smart Jr, MD Signed: 08/25/2019 9:44 AM Workstation Name: [id number]
[2019-08-25 10:13] VITALS: BP 128/78
== END 2019-08-25 10:12 | disposition home or self-care (01) ==
LOC: ED 08:16
DX: M54.2 Cervicalgia (principal); R22.1 Localized swelling, mass and lump, neck; G89.29 Other chronic pain; F32.9 Major depressive disorder, single episode, unspecified; F41.9 Anxiety disorder, unspecified; F17.200 Nicotine dependence, unspecified, uncomplicated; F12.10 Cannabis abuse, uncomplicated
CPT/HCPCS: 36415; 70360; 80048; 84443; 85025